=== PATIENT | female | born 1965 | race Caucasian/White ===

== ENCOUNTER 2019-02-17 06:09 | Emergency (ER) | payer OTHER ==
[~2019-02-17] VITALS: Ht 170.2 cm; Wt 72.6 kg
[~2019-02-17 06:09] MED LIST: CLARINEX2.5 MG/5 M; LIPITOR20 MG; SINGULAIR5 MG; ZOCOR20 MG
== END 2019-02-17 13:26 | disposition home or self-care (01) ==
LOC: ER 06:09
DX: N20.0 Calculus of kidney (principal); R10.31 Right lower quadrant pain

== ENCOUNTER 2019-03-25 21:24 | Emergency (ER) | payer OTHER ==
[~2019-03-25] VITALS: Ht 170.2 cm; Wt 72.6 kg
[2019-04-11] MEDS ORDERED: MINIVELLE1 EAC1 TD (13:31)
== END 2019-03-25 23:50 | disposition home or self-care (01) ==
LOC: ER 21:24
DX: N20.1 Calculus of ureter (principal)

== ENCOUNTER 2019-04-02 07:04 | Outpatient (CLI) | payer OTHER ==
[2019-04-11] MEDS ORDERED: MINIVELLE1 EAC1 TD (13:31)
== END 2019-04-02 07:19 | disposition home or self-care (01) ==
LOC: LAB 07:04
DX: N20.1 Calculus of ureter (principal)

== ENCOUNTER 2019-04-13 05:00 | Day surgery (SDC) | payer OTHER ==
[~2019-04-13 05:00] MED LIST changes: +MINIVELLE1 EAC1 TD
== END 2019-04-13 12:20 | disposition home or self-care (01) ==
LOC: CIR.AMB 05:00
DX: N20.0 Calculus of kidney (principal); N20.1 Calculus of ureter

== ENCOUNTER 2019-04-18 11:02 | Outpatient (CLI) | payer OTHER | END 2019-04-18 15:08 | disposition home or self-care (01) | LOC: RAD 11:02 | DX: N20.0 Calculus of kidney (principal) ==

== ENCOUNTER 2019-05-26 13:40 | Outpatient (CLI) | payer OTHER | END 2019-05-26 13:47 | disposition home or self-care (01) | LOC: LAB 13:40 | DX: N30.00 Acute cystitis without hematuria (principal) ==

== ENCOUNTER 2019-05-26 14:02 | Outpatient (CLI) | payer OTHER | END 2019-05-26 14:04 | disposition home or self-care (01) | LOC: SONOGRAMA 14:02 → MAMO-SONO 14:15 | DX: N20.0 Calculus of kidney (principal) ==

== ENCOUNTER 2019-06-13 13:34 | Outpatient (CLI) | payer OTHER | END 2019-06-13 14:57 | disposition HB | LOC: LAB 13:34 | DX: N20.0 Calculus of kidney (principal); N20.1 Calculus of ureter ==

== ENCOUNTER 2019-06-27 10:09 | Outpatient (CLI) | payer OTHER | END 2019-06-27 10:14 | disposition home or self-care (01) | LOC: LAB 10:09 | DX: N20.0 Calculus of kidney (principal); N20.1 Calculus of ureter ==

== ENCOUNTER 2020-01-09 09:47 | Outpatient (CLI) | payer OTHER | END 2020-01-09 09:48 | disposition home or self-care (01) | LOC: RAD 09:47 | PROVIDERS: ATTEND Urology | DX: N20.0 Calculus of kidney (principal) ==

== ENCOUNTER 2020-01-11 08:00 | Outpatient (CLI) | payer OTHER | END 2020-01-11 15:00 | disposition home or self-care (01) | LOC: LAB 08:00 | PROVIDERS: ATTEND Urology | DX: N20.0 Calculus of kidney (principal); N20.1 Calculus of ureter ==

== ENCOUNTER 2020-01-13 11:13 | Outpatient (CLI) | payer OTHER | END 2020-01-13 11:38 | disposition home or self-care (01) | LOC: LAB 11:13 | PROVIDERS: ATTEND Urology | DX: N20.0 Calculus of kidney (principal); N20.1 Calculus of ureter ==

== ENCOUNTER → 2020-01-16 08:36 | Outpatient (CLI) | payer OTHER | END | disposition home or self-care (01) | LOC: LAB 08:36 | PROVIDERS: ATTEND Urology | DX: N20.0 Calculus of kidney (principal); N20.1 Calculus of ureter ==

== ENCOUNTER 2020-11-27 16:08 | Outpatient (CLI) | payer OTHER | END 2020-11-27 16:18 | disposition home or self-care (01) | LOC: RAD 16:08 | PROVIDERS: ATTEND Urology | DX: N20.0 Calculus of kidney (principal) ==

== ENCOUNTER → 2021-02-04 | Outpatient (CLI) | payer OTHER | END | disposition home or self-care (01) | LOC: LAB 16:09 | PROVIDERS: ATTEND Urology | DX: N30.00 Acute cystitis without hematuria (principal) ==

== ENCOUNTER 2022-01-06 10:45 | Outpatient (CLI) | payer OTHER | END 2022-01-06 12:18 | disposition home or self-care (01) | LOC: RAD 10:45 | PROVIDERS: ATTEND Urology | DX: N20.0 Calculus of kidney (principal); N20.1 Calculus of ureter ==